=== PATIENT | male | born 1950 | race Caucasian/White ===

== ENCOUNTER 2017-05-13 03:00 | Observation (INO) | END 2017-05-14 18:25 | disposition home health service (06) ==

== ENCOUNTER 2017-06-11 19:28 | Inpatient (IN) | END 2017-06-17 19:35 | disposition home health service (06) | DRG 854 ==

== ENCOUNTER 2017-10-15 15:34 | Observation (INO) | END 2017-10-17 17:00 | disposition home or self-care (01) ==

== ENCOUNTER 2017-11-02 18:18 | Emergency (ER) | END 2017-11-02 20:46 | disposition home or self-care (01) ==

== ENCOUNTER 2017-11-04 14:15 | Inpatient (IN) | END 2017-11-07 12:30 | disposition left against medical advice (07) | DRG 863 ==

== ENCOUNTER 2017-11-08 07:55 | Emergency (ER) | END 2017-11-08 10:06 | disposition home or self-care (01) ==

== ENCOUNTER 2017-11-26 11:44 | Inpatient (IN) | END 2017-11-27 14:30 | disposition home health service (06) | DRG 494 ==

== ENCOUNTER → 2018-04-04 | Outpatient (CLI) | payer MEDICARE, OTHER ==
[~2018-04-04] MED LIST: OXYC40TA26 PO; SERT-165 PO
== END | disposition home or self-care (01) ==
LOC: RAD 11:00
PROVIDERS: ATTEND Podiatrist Foot & Ankle Surgery
DX: M79.672 Pain in left foot (principal)
CPT/HCPCS: 73610

== ENCOUNTER 2018-04-15 12:39 | Emergency (ER) | payer MEDICARE, OTHER ==
[~2018-04-15] VITALS: Wt 89.0 kg
--- NOTE | 2018-04-15 15:18 | ERD ---
ER Documentation Chief Complaint Chief Complaint LEFT FOOT PAIN WITH SWELLING; PAIN MANAGEMENT HPI 67-year-old male presents the emergency department complaining of left foot swelling. Patient has a history of chronic pain in his left foot secondary to an ORIF procedure that was performed. Patient has been taking his usual pain medication. He reports that recently, his foot has been more swollen than usual. He reports no fevers, chills, numbness, tingling over and above his baseline. ROS All systems reviewed and are negative except as per history of present illness. Medications Home Meds Reported Medications Sertraline Hcl* (Sertraline Hcl*) 100 Mg Tablet, 100 MG PO DAILY for 0 Days 05/12/17 Oxycodone Hcl* (Oxycontin*) 40 Mg Tab.er.12h, 40 MG PO Q12, TAB 05/12/17 Allergies Allergies: Coded Allergies: No Known Allergy (Verified , 11/08/17) PMhx/Soc History of Surgery: Yes (Ex/Fixator 09/2017, ) Anesthesia Reaction: No Hx Neurological Disorder: No Hx Respiratory Disorders: No Hx Cardiac Disorders: No Hx Psychiatric Problems: No Hx Miscellaneous Medical Probl: No Hx Alcohol Use: No Hx Substance Use: No Hx Tobacco Use: No Smoking Status: Never smoker Physical Exam Vitals Vital Signs Date Temp Pulse Resp B/P (MAP) Pulse Ox O2 O2 Flow FiO2 Time Delivery Rate 04/15/18 98.1 87 18 164/71 99 12:49 (102) Physical Exam GENERAL: The patient is well developed and appropriate for usual state of health in no apparent distress HEENT: Pupils equal, round, and reactive to light. EOMI. There is no scleral icterus. NECK: C-spine is soft and supple, there is no meningismus. There is no cervical lymphadenopathy. LUNGS: Clear to auscultation bilaterally. There are no rales, wheezes or rh onchi. HEART: Regular rate and rhythm, no murmurs, clicks, rubs or gallops. ABDOMEN: Soft, non-tender, non-distended. There are bowel sounds in all four quadrants. No rebound or guarding. EXTREMITIES: All extremities are normal except for the left lower extremity which demonstrates operative repair. There is swelling in that area. There is no redness erythema or cellulitis. NEURO: The patient moves all four extremities with 5/5 strength. Cranial nerves II - XII are intact. Normal gait. Alert and oriented SKIN: Chronic skin changes are noted with no open wound and no evidence of infection. HEME/LYMPHATIC: There is no evidence of excessive bruising or lymphedema. PSYCHIATRIC: The patient does not appear anxious or depressed. Result Diagram: 04/15/18 1422 04/15/18 1422 Results 24 hrs Laboratory Tests Test 04/15/18 14:22 White Blood Count 5.4 10^3/ul Red Blood Count 4.62 10^6/ul Hemoglobin 11.5 g/dl Hematocrit 37.6 % Mean Corpuscular Volume 81.4 fl Mean Corpuscular Hemoglobin 24.9 pg Mean Corpuscular Hemoglobin Concent 30.6 g/dl Red Cell Distribution Width 15.9 % Platelet Count 116 10^3/UL Mean Platelet Volume 10.0 fl Immature Granulocytes % 0.200 % Neutrophils % 72.7 % Lymphocytes % 17.0 % Monocytes % 9.7 % Eosinophils % 0.0 % Basophils % 0.4 % Nucleated Red Blood Cells % 0.0 /100WBC Immature Granulocytes # 0.010 10^3/ul Neutrophils # 3.9 10^3/ul Lymphocytes # 0.9 10^3/ul Monocytes # 0.5 10^3/ul Eosinophils # 0.0 10^3/ul Basophils # 0.0 10^3/ul Nucleated Red Blood Cells # 0.0 10^3/ul Sodium Level 141 mmol/L Potassium Level 4.5 mmol/L Chloride Level 103 mmol/L Carbon Dioxide Level 29 mmol/L Anion Gap 9 Blood Urea Nitrogen 19 mg/dl Creatinine 1.02 mg/dl Est Glomerular Filtrat Rate mL/min > 60 mL/min Glucose Level 99 mg/dl Calcium Level 9.3 mg/dl Procedures/MDM Patient was taken to a room, seen and examined Medical decision makin-year-old with chronic pain and a chronic left lower extremity wound presents the emergency department with swelling of his left leg. At this time based on his clinical lab tests, ultrasound as well as clinical evaluation he has no evidence of DVT, no evidence of infection. He has outpatient follow-up with his doctor this week and he seems to be appropriate for outpatient care at this time. Departure Diagnosis: Primary Impression: Foot pain Condition: Stable Patient Instructions: Understanding Chronic Pain Additional Instructions: Please follow-up with your foot doctor on Tuesday as scheduled. Continue your usual medication. MANISH DELGADO Apr 15, 2018 15:18
[2018-04-15 16:30] VITALS: BP 149/94; PULSE 75; RESP 19
== END 2018-04-15 16:40 | disposition home or self-care (01) ==
LOC: FTE 12:39
DX: M79.672 Pain in left foot (principal)
CPT/HCPCS: 80048; 85025; 93971

== ENCOUNTER 2018-05-08 16:06 | Emergency (ER) | payer MEDICARE, OTHER ==
[~2018-05-08] VITALS: Ht 175.3 cm; Wt 100.0 kg
[2018-05-08 16:10] VITALS: Ht 175.3 cm; Wt 100.0 kg
[2018-05-08] MEDS ORDERED: HYDROmorphONE 0.5 MG/0.5 ML SYG IM STA (18:08)
[2018-05-08] MEDS ORDERED: METHOCARBAMOL 750 MG TAB PO ONE (18:30)
[2018-05-08] MEDS ORDERED: DEXAMETHASONE 10 MG/ML 1 ML INJ IM ONE (18:30)
[2018-05-08] MEDS ORDERED: OXYC40TA41 PO (19:27)
[2018-05-08] MEDS ORDERED: OXYC40TA26 PO (19:27)
[2018-05-08] MEDS ORDERED: METH750T93 PO (19:32)
--- NOTE | 2018-05-08 19:34 | ERD ---
ER Documentation Chief Complaint Chief Complaint Complains of left foot pain x 3 days ROS All systems reviewed and are negative except as per history of present illness. Medications Home Meds Active Scripts Methocarbamol* (Robaxin*) 750 Mg Tablet, 750 MG PO TID for back pain, #30 TAB Prov:JOSETTE METZ DO 05/08/18 Oxycodone Hcl* (Oxycontin*) 40 Mg Tab.er.12h, 40 MG PO Q12, #6 TAB Prov:JOSETTE METZ DO 05/08/18 Reported Medications Sertraline Hcl* (Sertraline Hcl*) 100 Mg Tablet, 100 MG PO DAILY for 0 Days 05/12/17 Oxycodone Hcl* (Oxycontin*) 40 Mg Tab.er.12h, 40 MG PO Q12, TAB 05/12/17 Discontinued Scripts Oxycodone HCl (Oxycodone HCl ER) 40 Mg Tab.er.12h, 40 MG PO BID for pain, #6 TAB Prov:JOSETTE METZ DO 05/08/18 Allergies Allergies: Coded Allergies: No Known Allergy (Verified , 11/08/17) PMhx/Soc History of Surgery: Yes (Ex/Fixator 09/2017, ) Anesthesia Reaction: No Hx Neurological Disorder: No Hx Respiratory Disorders: No Hx Cardiac Disorders: No Hx Psychiatric Problems: No Hx Miscellaneous Medical Probl: No Hx Alcohol Use: No Hx Substance Use: No Hx Tobacco Use: No Physical Exam Vitals Vital Signs Date Temp Pulse Resp B/P (MAP) Pulse Ox O2 O2 Flow FiO2 Time Delivery Rate 05/08/18 98.4 81 20 153/68 94 16:10 (96) Physical Exam Const: No acute distress Head: Atraumatic Eyes: Normal Conjunctiva ENT: Normal External Ears, Nose and Mouth. Neck: Full range of motion. No meningismus. Resp: Clear to auscultation bilaterally Cardio: Regular rate and rhythm, no murmurs Abd: Soft, non tender, non distended. Normal bowel sounds Skin: No petechiae or rashes Back: No midline or flank tenderness Ext: No cyanosis, or edema Neur: Awake and alert Psych: Normal Mood and Affect Results 24 hrs Current Medications Medications Dose Sig/Shiela Start Time Status Last (Trade) Ordered Route PRN Stop Time Admin Dose Reason Admin 0.5 mg ONCE STAT 05/08/18 DC 05/08/18 Hydromorphone IM 18:08 18:34 HCl 05/08/18 18:09 (Dilaudid) 10 mg ONCE ONCE 05/08/18 DC 05/08/18 Dexamethasone IM 18:30 18:34 (Decadron) 05/08/18 18:31 750 mg ONCE ONCE 05/08/18 DC 05/08/18 Methocarbamol PO 18:30 18:34 (Robaxin) 05/08/18 18:31 Departure Diagnosis: Primary Impression: Foot pain Laterality: left Qualified Codes: M79.672 - Pain in left foot Additional Impression: Back pain Back pain location: low back pain Chronicity: chronic Back pain laterality: bilateral Sciatica presence: without sciatica Qualified Codes: M54.5 - Low back pain; G89.29 - Other chronic pain Condition: Fair Patient Instructions: Back Pain (Acute Or Chronic) Referrals: COMM[facility]ITY CLINICS YOU HAVE RECEIVED A MEDICAL SCREENING EXAM AND THE RESULTS INDICATE THAT YOU DO NOT HAVE A CONDITION THAT REQUIRES URGENT TREATMENT IN THE EMERGENCY DEPARTMENT. FURTHER EVALUATION AND TREATMENT OF YOUR CONDITION CAN WAIT UNTIL YOU ARE SEEN IN YOUR DOCTORS OFFICE WITHIN THE NEXT 1-2 DAYS. IT IS YOUR RESPONSIBILITY TO MAKE AN APPOINTMENT FOR FOLOW-UP CARE. IF YOU HAVE A PRIMARY DOCTOR --you should call your primary doctor and schedule an appointment IF YOU DO NOT HAVE A PRIMARY DOCTOR YOU CAN CALL OUR PHYSICIAN REFERRAL HOTLINE AT IF YOU CAN NOT AFFORD TO SEE A PHYSICIAN YOU CAN CHOSE FROM THE FOLLOWING [facility] CL[facility]ICS [facility] [address] [facility]. [facility] [address] [facility]. [facility] [[email or web address] [address] [facility] [address] [facility] [facility]. [facility] [address] [facility]. [facility]. [address] Additional Instructions: Call your primary care doctor TOMORROW for an appointment during the next 1-2 days.See the doctor sooner or return here if your condition worsens before your appointment time. JOSETTE METZ DO May 08, 2018 19:33
[2018-05-08 19:40] VITALS: BP 167/72; PULSE 57; RESP 18
== END 2018-05-08 19:43 | disposition home or self-care (01) ==
LOC: FTE 16:06
DX: M79.672 Pain in left foot (principal); M54.5 Low back pain
CPT/HCPCS: 96372; 99284; J1100; J1170